=== PATIENT | male | born 1980 | race Caucasian/White ===

== ENCOUNTER 2021-07-22 21:34 | Inpatient (IN) | payer MEDICAID, SELFPAY ==
--- NOTE | ~2021-07-22 | CT_ITS ---
EXAMINATION: CT ABDOMEN AND PELVIS WITH CONTRAST CLINICAL INFORMATION: Abdominal pain. Elevated lipase. Constipated. Question malignancy. COMPARISON: None TECHNIQUE: Multidetector volumetric images were obtained from the superior aspect of the liver through the pubic symphysis following administration 85 mL of Omnipaque 350 intravenous contrast. Sagittal and coronal reformatted images were obtained on the technologist's workstation. Oral contrast: No This CT examination was performed using dose optimization techniques as appropriate, variously including the following: *Automated exposure control *Adjustment of mA and/or kV according to patient size (this includes techniques or standardized protocols for targeted exams where dose is matched to indication/reason for exam; i.e. extremities or head) *Use of iterative reconstruction technique DLP: 376 mGy-cm FINDINGS: LUNG BASES: The visualized lung bases are unremarkable. LIVER, GALLBLADDER, AND BILIARY TREE: The liver is normal in size, shape, and attenuation. No focal hepatic lesion or biliary ductal dilatation is present. The gallbladder is unremarkable with no evidence of radiopaque gallstones, gallbladder wall thickening, or obvious pericholecystic inflammatory changes. PANCREAS: Unremarkable. SPLEEN: Unremarkable. ADRENAL GLANDS: Unremarkable. KIDNEYS AND URETERS: The kidneys are normal in size, shape, and attenuation. No hydronephrosis, hydroureter, or calculi seen. No perinephric stranding. BLADDER: Unremarkable. GASTROINTESTINAL TRACT: The stomach is unremarkable. Normal caliber small bowel. There is no obstruction. No colonic wall thickening or adjacent inflammation. There is diverticulosis present without diverticulitis. The appendix is not definitively seen. ABDOMINAL WALL: No significant hernia is appreciated. LYMPH NODES: Normal. VASCULAR: Unremarkable. PELVIC VISCERA: The prostate and seminal vesicles are unremarkable. OSSEOUS STRUCTURES: No acute or suspicious osseous abnormality. Evidence of previous hardware in the right femur. Spinal fusion hardware extending from the thoracic spine to the level of L1. Degenerative changes noted in the lumbar spine. CT/CT abdomen pelvis w con IMPRESSION: No acute or suspicious findings of the abdomen or pelvis. No mass identified. No lymphadenopathy. No inflammatory changes. Fleischner guidelines were followed.
--- NOTE | ~2021-07-22 | XR_ITS ---
EXAMINATION: XR CHEST CLINICAL INFORMATION: Shortness of breath COMPARISON: None TECHNIQUE: Frontal view of the chest was obtained. FINDINGS: Spinal fusion hardware noted. The lungs are well expanded. No consolidation, edema, or effusion. No pneumothorax. The cardiomediastinal silhouette is within normal limits. XR/XR chest 1V IMPRESSION: No acute pulmonary finding.
[2021-07-22 22:09] VITALS: BP 146/86; PULSE 103; RESP 20; TEMP 37; O2SAT 98; BMI 22.4
[2021-07-22 23:31] LABS: MANUAL DIFF FLAG NO
[2021-07-22 23:36] LABS: Basophils Percent Auto 0.4 % (0-2); Eosinophils Absolute Auto 0.2 X10*3/uL (0.0-0.4); Eosinophils Percent Auto 2.8 % (0-4); Hematocrit 42.8 % (42.0-52.0); Imm Gran Abs Auto 0.02 X10*3/uL (0.00-0.03); Imm Gran Pct Auto 0.3 % (0.0-0.4); Lymphocytes Absolute Auto 0.5 X10*3/uL (1.2-4.9); Lymphocytes Percent Auto 7.2 % (20-40); Mean Corpuscular HGB Conc 32.7 g/dl (31.0-36.0); Mean Corpuscular Hemoglobin 29.9 pg (27.0-33.0); Mean Corpuscular Volume 91.3 fL (80.0-98.0); Mean Platelet Volume 9.5 fL (9.4-12.4); Monocytes Absolute Auto 0.7 X10*3/uL (0.1-1.2); Monocytes Percent Auto 9.3 % (2-11); Neutrophils Absolute Auto 5.9 x10*3/uL (2.0-8.3); Platelet Count 194 X10*3/uL (160-400); Red Blood Count 4.69 X10*6/uL (4.60-5.80); Red Cell Distribution Width 12.4 % (11.0-16.0); White Blood Count 7.4 X10*3/uL (4.8-10.8)
[2021-07-22 23:50] LABS: Alanine Aminotransferase 30 U/L (0-40); Albumin Level 4.8 g/dL (3.5-5.0); Alkaline Phosphatase 56 U/L (39-117); Anion Gap 17 (12-20); Aspartate Amino Transferase 27 U/L (5-37); Bilirubin Direct 0.3 mg/dL (0.0-0.5); Bilirubin Total 0.6 mg/dL (0.0-1.0); Blood Urea Nitrogen 14 mg/dL (9-16); Calcium 10.3 mg/dL (8.4-10.2); Carbon Dioxide 28 mmol/L (22-29); Chloride 103 mmol/L (96-108); Creatinine Clr Calc Pharmacy 73.1; Estimated Glomerular Filt Rate > 60; Glucose Random 113 mg/dL (60-115); Lipase 853 U/L (8-78); Potassium 4.5 mmol/L (3.3-5.1); Sodium 143 mmol/L (135-145)
[2021-07-22 23:54] LABS: COVID-19 Test Negative (Negative)
[2021-07-23] VITALS: BP 127/68; PULSE 94; RESP 16; TEMP 37.1; O2SAT 95
[2021-07-23] MEDS: HYDROmorphone HCl 0.5 MG/0.5 ML SYRINGE 0.25 MG IVPUSH (00:32)
[2021-07-23] MEDS: 0.9 % Sodium Chloride 2,000 ML 999 ML IV (00:33)
--- NOTE | 2021-07-23 00:36 | ED_ITS ---
HPI - Abdominal Pain General Chief Complaint: Abdominal Pain Stated Complaint: ulcer? stomach pain Time Seen by Provider: 07/23/21 00:01 Source: patient Mode of arrival: ambulatory History of Present Illness HPI narrative: 40-year-old male who presents with complaints of chronic sharp abdominal pain radiates along the diaphragmatic distribution as well as into his back that has worsened tonight, denies nausea/vomiting, but states that he felt constipated so he drank a bottle of magnesium citrate 2 hours ago. He denies any history or recent use of alcohol and denies any drugs. Otherwise he denies any shortness of breath but states the pain radiates up into his chest bilaterally. Patient denies any COVID-19 vaccination Related Data Home Medications Medication Instructions Recorded Confirmed No Known Home Meds 07/23/21 07/23/21 Allergies Allergy/AdvReac Type Severity Reaction Status Date / Time Penicillins Allergy Intermediate Hives Verified 07/22/21 22:09 Sulfa (Sulfonamide Allergy Hives Verified 07/22/21 22:09 Antibiotics) Review of Systems Review of Systems Pertinent positives and negatives as stated in HPI 10 point review of systems is otherwise negative. Physical Exam Verdana 4l Vital Signs: Verdana 4d Verdana 4d Vital Signs: Verdana 4d Verdana 4Bd Last Vital Signs Verdana 4d Cultural Historian New 4d Cultural Historian New 4d Temp 98.5 F 07/23/21 03:27 Cultural Historian New 4d Pulse 82 07/23/21 03:27 Cultural Historian New 4d Resp 16 07/23/21 03:27 BP 113/69 07/23/21 03:27 Pulse Ox 100 07/23/21 03:27 BMI result Body Mass Index 22.4 VITAL SIGNS: Reviewed. GENERAL: Well developed, well nourished, in mild distress. HEAD: Normocephalic/atraumatic EYES: PERRLA, EOMI \ EARS: Ext canals without abnormality OROPHARYNX: no oral lesions noted, posterior pharynx clear LUNGS: Normal breath sounds. No adventitious sounds or accessory muscle use. SpO2<98> CARDIOVASCULAR: Regular rate and rhythm without noted murmurs, no JVD or lower extremity edema. ABDOMEN: Soft, diffusely tender without rebound, tenderness maximal at epigastrium, non-distended with bowel sounds. MUSCULOSKELETAL: No tenderness, deformities, or effusions noted on gross inspection. EXTREMITIES: No cyanosis, clubbing or edema. SKIN: Inspection of the skin reveals no rashes NEUROLOGIC: Alert and oriented x 4. Strength and sensation to light touch were grossly intact x 4. Course Course Course Narrative: 40-year-old male with history and clinical presentation most suggestive of pa ncreatitis although he reports a history of gastric ulcer and has no surgical history. On review of all investigations is noted have an elevated lipase and then the absence nausea, vomiting, fever, chills or alcohol use concerning for possible malignancy. Patient received IV fluids as well as pain medication. Review of all investigations consistent with acute pancreatitis, but etiology not clear at this point. This case was discussed with the inpatient hospitalist who accepts admission. MDM - Abdominal Pain Lab Data Result diagrams: 07/22/21 23:28 07/22/21 23:28 Labs: Lab Results 07/22/21 07/22/21 07/22/21 Range/Units 23:28 23:28 23:28 WBC 7.4 (4.8-10.8) X10*3/uL RBC 4.69 (4.60-5.80) X10*6/uL Hgb 14.0 (14.0-18.0) g/dl Hct 42.8 (42.0-52.0) % MCV 91.3 (80.0-98.0) fL MCH 29.9 (27.0-33.0) pg MCHC 32.7 (31.0-36.0) g/dl RDW 12.4 (11.0-16.0) % Plt Count 194 (160-400) X10*3/uL MPV 9.5 (9.4-12.4) fL Immature Gran % (Auto) 0.3 (0.0-0.4) % Neut % (Auto) 80.0 H (45-73) % Lymph % (Auto) 7.2 L (20-40) % [place] % (Auto) 9.3 (2-11) % Eos % (Auto) 2.8 (0-4) % Baso % (Auto) 0.4 (0-2) % Lymph # (Auto) 0.5 L (1.2-4.9) X10*3/uL [place] # (Auto) 0.7 (0.1-1.2) X10*3/uL Eos # (Auto) 0.2 (0.0-0.4) X10*3/uL Baso # (Auto) 0.0 (0.0-0.2) X10*3/uL Abs Immat Gran (auto) 0.02 (0.00-0.03) X10*3/uL Absolute Neuts (auto) 5.9 (2.0-8.3) x10*3/uL Absolute Nucleated RBC 0.000 (0.0-0.012) X10*3/uL Nucleated RBC % (auto) 0.0 (0.0-0.2) /100WBC Sodium 143 (135-145) mmol/L Potassium 4.5 (3.3-5.1) mmol/L Chloride 103 (96-108) mmol/L Carbon Dioxide 28 (22-29) mmol/L Anion Gap 17 (12-20) BUN 14 (9-16) mg/dL Creatinine 1.14 (0.5-1.4) mg/dL Estim Creat Clear Calc 73.1 Estimated GFR > 60 Random Glucose 113 (60-115) mg/dL Calcium 10.3 H (8.4-10.2) mg/dL Total Bilirubin 0.6 (0.0-1.0) mg/dL Direct Bilirubin 0.3 (0.0-0.5) mg/dL AST 27 (5-37) U/L ALT 30 (0-40) U/L Alkaline Phosphatase 56 (39-117) U/L Total Protein 8.0 (6.5-8.0) g/dL Albumin 4.8 (3.5-5.0) g/dL Triglycerides 49 mg/dL Cholesterol 148 mg/dL LDL Cholesterol, Calc 86 mg/dl HDL Cholesterol 53 mg/dL Lipase 853 H (8-78) U/L COVID-19 (INDU) Negative (Negative) COVID-19 Clin Com See Note Discharge Plan Discharge Clinical Impression: Acute pancreatitis, Intractable abdominal pain Patient Disposition: Admitted As [facility]patient [facility] Past Medical History Source: nursing notes reviewed Social History Social History Patient Tobacco Use Status: Current everyday Tobacco user Use of substances other than those prescribed or required for medical reasons: Yes Substance Use Type: Marijuana Advance Directives: No
--- NOTE | 2021-07-23 00:42 | PC.NURSE ---
pt a&o, no sob or chest pain. pt medicated per abd pain. Medicated per Mar.
[2021-07-23] MEDS: iohexoL 350 MG/ML 100 ML INFUS..BTL 85 ML IV (01:21)
[2021-07-23 01:34] LABS: Cholesterol 148 mg/dL; HDL Cholesterol 53 mg/dL; LDL Cholesterol Calculated 86 mg/dl; Triglycerides 49 mg/dL
--- NOTE | 2021-07-23 03:19 | PC.NURSE ---
pt a&o, denies any sob or chest pain. pt medicated per Mar. Will continue to monitor. Pt is upset that he can not have a visitor come see him, I did review hospital policy with patient. Notified charge nurse.
[2021-07-23 03:25] VITALS: BP 113/69; PULSE 82; RESP 20
[2021-07-23 03:27] VITALS: BP 113/69; PULSE 82; RESP 16; TEMP 36.9; O2SAT 100
--- NOTE | 2021-07-23 03:30 | PC.NURSE ---
verbal order for zofran. Will medicated for nausea and vomiting.
--- NOTE | 2021-07-23 03:38 | P.HPHOSP_ITS ---
History of Present Illness Date of Service: 07/23/21 Chief Complaint: abd pain This is a 40-year-old male with no significant past medical history who presents to the hospital with complaints of abdominal pain. Patient reports that his abdominal pain is mostly in the epigastric region but her radiating to the rest of his abdomen, to his back, associated with nausea with no vomiting, poor oral intake. He reports that he has had this abdominal pain for many months but it was intermittent but has now been constant for the past 5 days. He is constipated, he reports history of ulcer in is worried that this may be secondary to his altered as he has not been compliant with his antiacid medications. Patient denies any melena, no hemoptysis but reports a couple of months ago he had an episode ofcoffee-ground emesis. He is complaining of shortness of breath with no cough or sputum production. Denies any fever or chills, reports no alcohol intake. On arrival to the ED patient hemodynamically stable with no significant abnormal vitals except slightly elevated blood pressure and heart rate of 103. Labs are significant for lipase of [address] with contrast showed no significant abnormality and no evidence of pancreatitis Patient will be admitted for further management Review of Systems Verdana 4l Review of Systems: Yes all other systems are reviewed and Verdana 4d are negative PMFSH Pertinent family history: Denies any hx of CAD Surgical History (Updated 07/23/21 @ 06:25 by Veda Slater MD) No pertinent past surgical history Social History Patient Tobacco Use Status: Current everyday Tobacco user Use of substances other than those prescribed or required for medical reasons: Yes Substance Use Type: Marijuana Advance Directives: No Meds Allergies Allergy/AdvReac Type Severity Reaction Status Date / Time Penicillins Allergy Intermediate Hives Verified 07/22/21 22:09 Sulfa (Sulfonamide Allergy Hives Verified 07/22/21 22:09 Antibiotics) Home Medications Medication Instructions Recorded Confirmed Last Taken Type No Known Home Meds 07/23/21 07/23/21 Unknown History Physical Exam Verdana 4l Vital Signs and Narrative: Verdana 4d Verdana 4d Vital Signs: Verdana 4d Verdana 4Bd Last Vital Signs Verdana 4d Learning Solutions Specialist New 4d Learning Solutions Specialist New 4d Temp 98.5 F 07/23/21 03:27 Learning Solutions Specialist New 4d Pulse 82 07/23/21 03:27 Learning Solutions Specialist New 4d Resp 16 07/23/21 03:27 BP 113/69 07/23/21 03:27 Pulse Ox 100 07/23/21 03:27 BMI result Body Mass Index 22.4 Results Labs CBC and Chem 7: 07/22/21 23:28 07/22/21 23:28 Labs: Laboratory Results - last 24 hr 07/22/21 07/22/21 07/22/21 23:28 23:28 23:28 MCV 91.3 MCH 29.9 MCHC 32.7 RDW 12.4 Plt Count 194 MPV 9.5 Immature Gran % (Auto) 0.3 Neut % (Auto) 80.0 H Lymph % (Auto) 7.2 L [place] % (Auto) 9.3 Eos % (Auto) 2.8 Baso % (Auto) 0.4 Lymph # (Auto) 0.5 L [place] # (Auto) 0.7 Eos # (Auto) 0.2 Baso # (Auto) 0.0 Abs Immat Gran (auto) 0.02 Absolute Neuts (auto) 5.9 Absolute Nucleated RBC 0.000 Nucleated RBC % (auto) 0.0 Anion Gap 17 Estim Creat Clear Calc 73.1 Estimated GFR > 60 Random Glucose 113 Calcium 10.3 H Total Bilirubin 0.6 Direct Bilirubin 0.3 AST 27 ALT 30 Alkaline Phosphatase 56 Total Protein 8.0 Albumin 4.8 Triglycerides 49 Cholesterol 148 LDL Cholesterol, Calc 86 HDL Cholesterol 53 Lipase 853 H COVID-19 (INDU) Negative COVID-19 Clin Com See Note Imaging Radiologist's Impressions: Impressions Abdomen/Pelvis CT 07/23/21 01:20 IMPRESSION: No acute or suspicious findings of the abdomen or pelvis. No mass identified. No lymphadenopathy. No inflammatory changes. Fleischner guidelines were followed. Assessment and Plan (1) Acute pancreatitis: Status: Acute (2) Intractable abdominal pain: Status: Acute (3) Dyspnea: Status: Acute Plan 40-year-old male with no significant past medical history who presents to the hospital complaints of abdominal pain # abdominal pain - most likely secondary to acute pancreatitis - has no evidence of gallstone pancreatitis, triglycerides within normal limits, not on any medications. Denies alcohol use - CT abdomen negative but has significantly elevated lipase and characteristic abdominal pain - will start him on aggressive IV fluids - NPO - GI consulted # history of gastric ulcer - no melena, but reports an episode of coffee-ground emesis be months ago, no significant blood loss anemia present on labs - will start him on PPI - consult GI # dyspnea - possibly secondary to pain - no abnormal vitals 100% on room air - will obtain chest x-ray DVT prophylaxis: Lovenox Quality Stroke Does the patient have a stroke diagnosis?: No VTE Prior VTE?: No VTE Risk Level:: Medical - moderate - high VTE Device Contraindication: Treatment Not Indicated VTE Drug Contraindication: N/A - Med Ordered
[2021-07-23] MEDS: ondansetron HCL 4 MG/2 ML VIAL IVPUSH (03:52)
[2021-07-23] MEDS: Lactated Ringers 1,000 ML 200 ML IVCONT (03:57)
[2021-07-23] MEDS: Enoxaparin Sodium 40 MG/0.4 ML SYRINGE SUBCUT (03:58)
[2021-07-23 06:00] VITALS: BP 104/62; PULSE 78; RESP 16; TEMP 36.7; O2SAT 98
[2021-07-23 06:21] LABS: MANUAL DIFF FLAG NO
--- NOTE | 2021-07-23 06:33 | PC.NURSE ---
Chest x-ray ordered
[2021-07-23 06:41] LABS: Basophils Percent Auto 0.3 % (0-2); Eosinophils Absolute Auto 0.1 X10*3/uL (0.0-0.4); Eosinophils Percent Auto 0.8 % (0-4); Hematocrit 37.2 % (42.0-52.0); Hemoglobin 12.6 g/dl (14.0-18.0); Imm Gran Abs Auto 0.02 X10*3/uL (0.00-0.03); Imm Gran Pct Auto 0.3 % (0.0-0.4); Lymphocytes Absolute Auto 0.6 X10*3/uL (1.2-4.9); Lymphocytes Percent Auto 9.1 % (20-40); Mean Corpuscular HGB Conc 33.9 g/dl (31.0-36.0); Mean Corpuscular Hemoglobin 29.9 pg (27.0-33.0); Mean Corpuscular Volume 88.4 fL (80.0-98.0); Mean Platelet Volume 10.1 fL (9.4-12.4); Monocytes Absolute Auto 0.7 X10*3/uL (0.1-1.2); Monocytes Percent Auto 9.2 % (2-11); Neutrophils Absolute Auto 5.7 x10*3/uL (2.0-8.3); Neutrophils Percent Auto 80.3 % (45-73); Platelet Count 187 X10*3/uL (160-400); Red Blood Count 4.21 X10*6/uL (4.60-5.80); Red Cell Distribution Width 12.4 % (11.0-16.0); White Blood Count 7.1 X10*3/uL (4.8-10.8)
[2021-07-23 06:53] LABS: Appearance Urine CLEAR; Color Urine YELLOW; Glucose Urine UA NEG (NEG); Leukocyte Esterase Urine NEG (NEG); Nitrite Urine NEG (NEG); PH 7.5 (5.0-8.0); Specific Gravity - Urine <= 1.005 (1.005-1.025); Urine Blood NEG (NEG); Urine Ketones NEG (NEG); Urine Protein NEG (NEG-TRACE)
[2021-07-23 06:58] LABS: Anion Gap 10 (12-20); Blood Urea Nitrogen 9 mg/dL (9-16); Carbon Dioxide 26 mmol/L (22-29); Chloride 107 mmol/L (96-108); Creatinine Clr Calc Pharmacy 96.9; Estimated Glomerular Filt Rate > 60; Glucose Random 125 mg/dL (60-115); Potassium 4.2 mmol/L (3.3-5.1); Sodium 139 mmol/L (135-145)
[2021-07-23 07:11] LABS: Amphetamine Screen Urine Not Detected (Not Detect); Barbiturates, Urine Not Detected (Not Detect); Benzodiazepines Screen Urine Not Detected (Not Detect); Cannabinoid Screen Urine POSITIVE (Not Detect); Cocaine Screen Urine Not Detected (Not Detect); Fentanyl, urine Not Detected (Not Detect); Opiate Screen Urine Not Detected (Not Detect); Phencyclidine Screen Urine Not Detected (Not Detect)
[2021-07-23 07:13] VITALS: BP 125/80; PULSE 84; RESP 16; TEMP 36.9; O2SAT 98
[2021-07-23] MEDS: Morphine Sulfate 4 MG/ML CARTRIDGE IVPUSH (07:33)
[2021-07-23] MEDS: Pantoprazole Sodium 40 MG/10 ML VIAL IVPUSH (07:34)
--- NOTE | 2021-07-23 07:44 | PC.NURSE ---
report taken from orlin mccrary pt here w pancreatitis. asking for pain medication, pt has prn ordered. this rn in w medications, given per order. pt very agitated, upset at visitor policy, sts this bullshit plandemic is causing a million problems for the last two years . pt yelling with on telephone. this rn stepping out of room as pt continues to air general grievances w obscenities.
--- NOTE | 2021-07-23 08:11 | PHA.MEDREC ---
Pharmacy Consult ? Medication Reconciliation Pharmacy has reviewed the medication reconciliation completed by
--- NOTE | 2021-07-23 09:57 | PC.NURSE ---
pt yelling on phone in room, using obscenities. report to overflow given. pt educated about getting private room, hospitalist aware of pt behaviors, has already came down and consulted with pt this am. pt is refusing to go down to overflow, perseverates on topic of covid, the pandemic, and the healthcare system 'cooking the numbers' . pt asked by multiple staff members to please stop yelling and swearing. this rn messaged hospitalist again about pt.
--- NOTE | 2021-07-23 10:48 | PC.NURSE ---
pt given ama paper work, pt continues to voice agitation with doctors, nobody here can even diagnose me! . pt in no obvious distress, yelling at this rn.
--- NOTE | 2021-07-23 11:02 | PM.EVENT ---
Event Note Date of Service: 07/23/21 Event Note: Discharge summary Discharge diagnosis Abdominal pain Elevated lipase Patient decided to leave against medical advice as he wants to go back home and take care of his father. He did not want to wait to for the social work therapist or to continue the workup and treatment for his abdominal pain. I explained personally the risk of leaving the hospital including getting sicker and possible bleeding. He understood and repeated the risks and signed AMA papers and left.
--- NOTE | 2021-07-23 11:55 | MHC.CM.PN ---
Patient left AMA before he could be seen by case management.
== END 2021-07-23 10:00 | disposition left against medical advice (07) | DRG 282 ==
LOC: HO.ED 07-23 03:01 → HO.EDOVER 07-23 03:41
PROVIDERS: Admitting Provider Internal Medicine; Emergency Provider Student in an Organized Health Care Education/Training Program; Visit Provider Student in an Organized Health Care Education/Training Program
DX: K85.90 Acute pancreatitis without necrosis or infection, unspecified (principal); F17.210 Nicotine dependence, cigarettes, uncomplicated; Z20.822 Contact with and (suspected) exposure to COVID-19; Z88.0 Allergy status to penicillin; Z88.2 Allergy status to sulfonamides; Z71.6 Tobacco abuse counseling
CPT/HCPCS: 36415; 71045; 74177; 80048; 80061; 80076; 80307; 81003; 83690; 85025; 87635; 99218; 99284; J1170; J1650; J2270; J2405; Q9967

== ENCOUNTER 2022-04-15 20:01 | Emergency (ER) | payer MEDICAID, SELFPAY ==
[2022-04-15 21:55] VITALS: BP 111/76; PULSE 72; RESP 18; TEMP 36.7; O2SAT 98; BMI 24.1
--- NOTE | 2022-04-16 01:35 | ED.DIZZY ---
HPI - Dizziness General Chief Complaint: Dizziness Stated Complaint: dizziness,headache Time Seen by Provider: 04/16/22 01:35 Source: patient Mode of arrival: ambulatory Limitations: no limitations History of Present Illness HPI Narrative: Patient with history of chronic abdominal pain with pancreatitis history and chronic dizziness comes here for more dizziness lately and increased abdominal pain no nausea no vomiting no fever no chills no urinary complaints Related Data Previous Rx's Medication Instructions Recorded digestive enzymes (XymoZyme 1 cap PO DAILY #30 caps 04/16/22 capsule) oxycodone 5 mg tablet 5 mg PO Q6H PRN Moderate Pain 04/16/22 (Scale Score 5-6) #20 tabs Allergies Allergy/AdvReac Type Severity Reaction Status Date / Time Penicillins Allergy Intermediate Hives Verified 07/22/21 22:09 codeine Allergy Hives Verified 04/15/22 21:54 Sulfa (Sulfonamide Allergy Hives Verified 07/22/21 22:09 Antibiotics) Review of Systems Review of Systems: Yes all other systems are reviewed and are negative [facility] Past Medical History Surgical History No pertinent past surgical history Social History Social History Patient Tobacco Use Status: Current everyday Tobacco user Substance Use Type: Marijuana Advance Directives: No Physical Exam Vital Signs: Vital Signs: Last Vital Signs Temp 98.2 F 04/16/22 01:53 Pulse 63 04/16/22 03:52 Resp 16 04/16/22 02:08 BP 109/77 04/16/22 03:52 Pulse Ox 98 04/16/22 03:52 O2 Del Method 04/16/22 03:52 BMI result Body Mass Index 24.1 Appearance: Alert. Oriented X3. No acute distress. Eyes: PERRLA, No Nystagmus ENT: Pharynx normal. Oral Mucosa moist Neck: Normal inspection. Neck supple. CVS: Normal heart rate and rhythm. Pulses normal. Respiratory: No respiratory distress. Equal air entry bilateral, no wheezing/rales/rhonchi Abdomen: Soft and mild mid abdominal tenderness no rebound tenderness or guarding Bowel sounds are present, no mass palpable, no CVA tenderness Skin: Skin warm and dry. Normal skin color. Normal skin turgor. Extremities: No lower extremity edema. No calf tenderness Neuro: Oriented X 3. No motor deficit. No sensory deficit.No cerebellar signs , cranial nerves II-XII intact MDM - Dizziness MDM Narrative Medical decision making narrative: Patient with chronic pancreatitis with previous CT scan negative for inflammation this time lipase slightly elevated to 93 no nausea no vomiting chronic dizziness patient improved after IV fluids and pain medication discharge patient home on pain medication and pancreatic enzyme tablets Medical Records Attestation: I reviewed the patient's medical records. Lab Data Attestation: I reviewed the patient's lab results. Result diagrams: 04/16/22 02:04 04/16/22 02:04 Labs: Lab Results 04/16/22 04/16/22 Range/Units 02:04 02:04 WBC 11.6 H (4.8-10.8) X10*3/uL RBC 4.65 (4.60-5.80) X10*6/uL Hgb 13.8 L (14.0-18.0) g/dl Hct 42.1 (42.0-52.0) % MCV 90.5 (80.0-98.0) fL MCH 29.7 (27.0-33.0) pg MCHC 32.8 (31.0-36.0) g/dl RDW 12.2 (11.0-16.0) % Plt Count 247 D (160-400) X10*3/uL MPV 9.5 (9.4-12.4) fL Immature Gran % (Auto) 0.2 (0.0-0.4) % Neut % (Auto) 67.1 (45-73) % Lymph % (Auto) 24.1 (20-40) % [place] % (Auto) 5.9 (2-11) % Eos % (Auto) 2.4 (0-4) % Baso % (Auto) 0.3 (0-2) % Lymph # (Auto) 2.8 (1.2-4.9) X10*3/uL [place] # (Auto) 0.7 (0.1-1.2) X10*3/uL Eos # (Auto) 0.3 (0.0-0.4) X10*3/uL Baso # (Auto) 0.0 (0.0-0.2) X10*3/uL Abs Immat Gran (auto) 0.02 (0.00-0.03) X10*3/uL Absolute Neuts (auto) 7.8 (2.0-8.3) x10*3/uL Absolute Nucleated RBC 0.000 (0.0-0.012) X10*3/uL Nucleated RBC % (auto) 0.0 (0.0-0.2) /100WBC Sodium 141 (135-145) mmol/L Potassium 4.6 (3.3-5.1) mmol/L Chloride 103 (96-108) mmol/L Carbon Dioxide 28 (22-29) mmol/L Anion Gap 15 (12-20) BUN 28 H D (9-16) mg/dL Creatinine 1.25 (0.5-1.4) mg/dL Estim Creat Clear Calc 66.2 Estimated GFR > 60 Random Glucose 110 (60-115) mg/dL Calcium 9.5 (8.4-10.2) mg/dL Total Bilirubin 0.6 (0.0-1.0) mg/dL AST 18 (5-37) U/L ALT 34 (0-40) U/L Alkaline Phosphatase 57 (39-117) U/L Total Protein 7.7 (6.5-8.0) g/dL Albumin 4.6 (3.5-5.0) g/dL Lipase 93 H (8-78) U/L Discharge Plan Discharge Clinical Impression: Chronic pancreatitis Patient Disposition: Home, Self-Care Instructions: Pancreatitis (ED) Additional Instructions: Take pain medication as advised Pancreatic enzyme tablets as prescribed Follow-up with PCP Prescriptions: New oxycodone 5 mg tablet 5 mg PO Q6H PRN (Reason: Moderate Pain (Scale Score 5-6)) Qty: 20 0RF Rx Instructions: Partial Fill upon patient request. XymoZyme Capsule 1 cap PO DAILY Qty: 30 0RF Rx Instructions: administer with food; swallow whole; do not crush/chew/dissolve/break/cut Interventions: ED Discharge Assessment Last Done: 04/16/22 04:27 Discharge Date/Time: 04/16/22 04:29
--- OUTSIDE RECORDS SUMMARY | 2022-04-16 01:38 | XMS_ITS | Continuity of Care Document ---
:1980 Author Organization [facility] Adult Address [address] [place] [address]- Care Team Providers Name Role Phone Anny Flores NP Primary Care Physician Encounter [facility] Date(s): 11/07/21 - 12/07/21 [facility] [address] [place] [phone]- Allergies, Adverse Reactions, Alerts Substance Reaction Severity Status neomycin Active penicillins Urticaria Active sulfonamides Active Immunizations Given and Recorded Vaccine Date Status Refusal Reason Diphth-Tetanus Toxoids Adsorbed(oldterm) 02/02/06 Given Problem List Condition Effective Dates Status Health Status Informant Depression(Confirmed) Active Low back pain(Confirmed) Active Mood disorder(Confirmed) Active Panic anxiety syndrome(Confirmed) Active 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
--- OUTSIDE RECORDS SUMMARY | 2022-04-16 01:38 | XMS_ITS | Continuity of Care Document ---
:1980 Author Organization [facility] Adult Address [address] [place] [address]- Care Team Providers Name Role Phone Anny Flores NP Primary Care Physician Encounter [facility] Date(s): 10/16/20 - 11/15/20 [facility] [address] [place] [phone]- Allergies, Adverse Reactions, Alerts Substance Reaction Severity [...]
--- OUTSIDE RECORDS SUMMARY | 2022-04-16 01:38 | XMS_ITS | Continuity of Care Document ---
:1980 Author Organization [facility] Adult Address [address] [place] [address]- Care Team Providers Name Role Phone Anny Flores NP Primary Care Physician Encounter [facility] Date(s): 11/20/20 - 12/20/20 [facility] [address] [place] [phone]- Allergies, Adverse Reactions, Alerts Substance Reaction Severity Status neomycin Active penicillins Urticaria Active sulfonamides Active Immunizations Given and Recorded Vaccine Date Status Refusal Reason Diphth-Tetanus Toxoids Adsorbed(oldterm) 02/02/06 Given Medications clonazePAM 0.5 mg oral tablet 1 tablet = 0.5 mg, By Mouth, Once, Take 1 tablet one hour before MRI. May repeat dose if necessary.,# 2 tablet, 0 Refills, Soft Stop, 11/20/20 14:34:00 EDT, [facility]/pharmacy #[id number], Partial fill upon patient request if the prescription is for a schedule... 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
--- OUTSIDE RECORDS SUMMARY | 2022-04-16 01:38 | XMS_ITS | Continuity of Care Document ---
:1980 Author Organization [facility] Address [address] [place] [address]- Care Team Providers Name Role Phone Anny Flores NP Primary Care Physician Encounter [facility] Date(s): 11/20/20 - 12/23/[address] [address] Attending Physician: Anny Flores NP Admitting Physician: Anny Flores NP Referring Physician: Anny Flores NP Allergies, Adverse Reactions, Alerts Substance Reaction Severity [...] 0 Refills, Soft Stop, 11/20/20 14:34:00 EDT, [facility]/pharmacy #[id number], Partial fill upon patient request if the [...]
--- OUTSIDE RECORDS SUMMARY | 2022-04-16 01:38 | XMS_ITS | Continuity of Care Document ---
:1980 Author Organization [facility] Address [address] [place] [id number]- Care Team Providers Name Role Phone Anny Flores NP Primary Care Physician Encounter [facility] [place] Date(s): 01/27/22 - 03/27/[address] [id number] Attending Physician: Kiki Wyatt MD Admitting Physician: Kiki Wyatt MD Referring Physician: Kiki Wyatt MD Allergies, Adverse Reactions, Alerts Substance Reaction Severity Status neomycin Active penicillins Urticaria Active sulfonamides Active Immunizations Given and Recorded Vaccine Date Status Refusal Reason Diphth-Tetanus Toxoids Adsorbed(oldterm) 02/02/06 Given Problem List Condition Confirmation Course Effective Dates Status Health Stat us Informant Depression Confirmed Active Low back pain Confirmed Active Mood disorder Confirmed Active Panic anxiety Confirmed Active syndrome 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
--- OUTSIDE RECORDS SUMMARY | 2022-04-16 01:38 | XMS_ITS | Continuity of Care Document ---
:1980 Author Organization [facility] Adult Address [address] [place] [address]- Care Team Providers Name Role Phone Anny Flores NP Primary Care Physician [place]counter [facility] [place] Date(s): 11/07/21 - 11/14/[address] [phone]- Encounter Diagnosis Well adult exam (Discharge Diagnosis) - 11/07/21 Hyperkalemia (Discharge Diagnosis) - 11/07/21 Mood disorder (Discharge Diagnosis) - 11/07/21 Attending Physician: Kiki Wyatt MD Allergies, Adverse Reactions, Alerts Substance Reaction Severity Status neomycin Active penicillins Urticaria Active sulfonamides Active Immunizations Given and Recorded Vaccine Date Status Refusal Reason Diphth-Tetanus Toxoids Adsorbed(oldterm) 02/02/06 Given Problem List Condition Effective Dates Status Health Status Informant Depression(Confirmed) Active Low back pain(Confirmed) Active Mood disorder(Confirmed) Active Panic anxiety syndrome(Confirmed) Active 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 Diagnosis Diagnosis Type Effective Dates Health Status Clinical In formant Service Well adult exam Discharge 11/07/21 Diagnosis Hyperkalemia Discharge 11/07/21 Diagnosis Mood disorder Discharge 11/07/21 Diagnosis Vital Signs Most recent to oldest [Reference Range]: 1 Height 164.5 cm (11/07/21 1:46 PM) Weight 72 kg (11/07/21 1:46 PM) Oxygen Saturation [94-100 %] 96 % (11/07/21 1:46 PM) Pulse Rate [55-90 bpm] 78 bpm (11/07/21 1:46 PM) Body Mass Index [18.5-24.99] 26.61 *H* (11/07/21 1:46 PM) Blood Pressure [90-138/55-84 mm Hg] 122/76 mm Hg (11/07/21 1:46 PM) Respiratory Rate [16-30 br/min] 18 br/min (11/07/21 1:46 PM) Mode of Delivery (Oxygen) Room air (11/07/21 1:46 PM) Blood pressure sites Arm, left (11/07/21 1:46 PM) Weight Obtained Via Standing scale (11/07/21 1:46 PM) Social History Social History Type Response Smoking Status Current every day smoker; Ty pe: Cigarettes; Tobacco use times per day: 1 PPD; Started at age: 13; entered on: 11/29/14 Sex
--- OUTSIDE RECORDS SUMMARY | 2022-04-16 01:38 | XMS_ITS | Continuity of Care Document ---
:1980 Author Organization [facility] Address [address] [place] [phone]- Care Team Providers Name Role Phone Anny Flores NP Primary Care Physician [place] [facility] [place](s): 01/27/22 - 03/27/[address] [id number] Attending Physician: Zo Rocha NP Admitting Physician: Zo Rocha NP Referring Physician: Zo Rocha NP Allergies, Adverse Reactions, Alerts Substance Reaction [...] information PersonnelName: Anny Flores NP Address: Address: [address] [place] [id number]
--- OUTSIDE RECORDS SUMMARY | 2022-04-16 01:38 | XMS_ITS | Continuity of Care Document ---
:1980 Author Organization [facility] Adult Address [address] [place] [address]- Care Team Providers Name Role Phone Anny Flores NP Primary Care Physician [place] [facility] [place] - 12/11/20 [facility] Adult [address] [place] [phone]- Allergies, Adverse Reactions, Alerts Substance Reaction Severity [...] 0 Refills, Soft Stop, 11/20/20 14:34:00 EDT, [facility]/pharmacy #[id number], Partial fill upon patient request if the [...]
--- OUTSIDE RECORDS SUMMARY | 2022-04-16 01:38 | XMS_ITS | Continuity of Care Document ---
:1980 Author Organization [facility] Adult Address [address] [place] [address]- Care Team Providers Name Role Phone Anny Flores NP Primary Care Physician Encounter [facility] [place] Date(s): 12/12/21 - 12/19/21 [facility] Adult [address] [place] [phone]- Encounter Diagnosis Axillary lump (Discharge Diagnosis) - 12/12/21 Attending Physician: Kiki Wyatt MD Allergies, Adverse [...] Dates Health Status Clinical In formant Service Axillary lump Discharge 12/12/21 Diagnosis Vital Signs Most recent to oldest [Reference Range]: 1 Height 164.5 cm (12/12/21 12:59 PM) Weight 68.4 kg (12/12/21 12:59 PM) Oxygen Saturation [94-100 %] 98 % (12/12/21 12:59 PM) Pulse Rate [55-90 bpm] 80 bpm (12/12/21 12:59 PM) Body Mass Index [18.5-24.99] 25.28 *H* (12/12/21 12:59 PM) Blood Pressure [90-138/55-84 mm Hg] 110/72 mm Hg (12/12/21 12:59 PM) Temperature [96.8-100.4 DegF] 98.4 DegF (12/12/21 12:59 PM) Mode of Delivery (Oxygen) Room air (12/12/21 12:59 PM) Blood pressure sites Arm, left (12/12/21 12:59 PM) Temperature Route Oral (12/12/21 12:59 PM) Weight Obtained Via Standing scale (12/12/21 12:59 PM) Social History Social History Type Response Smoking Status Current every day smoker; Ty pe: Cigarettes; Tobacco use times per day: 1 PPD; Started at age: 13; entered on: 11/29/14 Sex
--- OUTSIDE RECORDS SUMMARY | 2022-04-16 01:38 | XMS_ITS | Continuity of Care Document ---
:1980 Author Organization [facility] Adult Address [address] [place] [address]- Care Team Providers Name Role Phone Anny Flores NP Primary Care Physician Encounter [facility] [place] Date(s): 10/23/20 - 11/22/20 [facility] Adult [address] [place] [phone]- Allergies, Adverse Reactions, Alerts Substance Reaction Severity [...] 0 Refills, Soft Stop, 11/20/20 14:34:00 EDT, [facility]/pharmacy #[id number], Partial fill upon patient request if the [...]
--- OUTSIDE RECORDS SUMMARY | 2022-04-16 01:38 | XMS_ITS | Continuity of Care Document ---
:1980 Author Organization [facility] Adult Address [address] [place] [address]- Care Team Providers Name Role Phone Anny Flores NP Primary Care Physician [place] [facility] [place] Date(s): 08/12/21 - 09/11/21 [facility] Adult [address] [place] [phone]- Allergies, Adverse Reactions, Alerts Substance Reaction Severity [...] Refills, Soft Stop, 11/20/20 14:34:00 EDT, [facility]/pharmacy #[id number], Partial fill upon patient request if the [...]
--- OUTSIDE RECORDS SUMMARY | 2022-04-16 01:38 | XMS_ITS | Continuity of Care Document ---
:1980 Author Organization [facility] Adult Address [address] [place] [address]- Care Team Providers Name Role Phone Anny Flores NP Primary Care Physician Encounter [facility] [place] Date(s): 10/15/20 - 10/22/20 [facility] [address] [place] [phone] Encounter Diagnosis Annual visit for general adult medical examination with abnormal findings (Discharge Diagnosis) - 10/15/20 Scheuermann's kyphosis (Discharge Diagnosis) - 10/15/20 Panic anxiety syndrome (Discharge Diagnosis) - 10/15/20 Paresthesias (Discharge Diagnosis) - 10/15/20 Attending Physician: Anny Flores NP Allergies, Adverse Reactions, [...] Active Diagnosis Diagnosis Type Effective Dates Health Clinical Infor mant Status Service Panic anxiety Discharge 10/15/20 syndrome Diagnosis Scheuermann's Discharge 10/15/20 kyphosis Diagnosis Annual visit for Discharge 10/15/20 general adult Diagnosis medical examination with abnormal findings Paresthesias Discharge 10/15/20 Diagnosis Vital Signs Most recent to oldest [Reference Range]: 1 Height 164.5 cm (10/15/20 9:50 AM) Weight 61.6 kg (10/15/20 9:50 AM) Oxygen Saturation [94-100 %] 97 % (10/15/20 9:50 AM) Pulse Rate [55-90 bpm] 79 bpm (10/15/20 9:50 AM) Body Mass Index [18.5-24.99] 22.76 (10/15/20 9:50 AM) Blood Pressure [90-138/55-84 mm Hg] 110/86 mm Hg (10/15/20 9:50 AM) Temperature [96.8-100.4 DegF] 98 DegF (10/15/20 9:50 AM) Mode of Delivery (Oxygen) Room air (10/15/20 9:50 AM) Blood pressure sites Arm, left (10/15/20 9:50 AM) Temperature Route Oral (10/15/20 9:50 AM) Weight Obtained Via Standing scale (10/15/20 9:50 AM) Social History Social History Type Response Smoking Status Current every day smoker; Ty pe: Cigarettes; Tobacco use times per day: 1 PPD; Started at age: 13; entered on: 11/29/14 Sex
--- OUTSIDE RECORDS SUMMARY | 2022-04-16 01:38 | XMS_ITS | Continuity of Care Document ---
:1980 Author Organization [facility] Address [address] [place] [phone]- Care Team Providers Name Role Phone Anny Flores NP Primary Care Physician Encounter [facility] [place] Date(s): 12/24/21 - 02/26/[address] [address] Attending Physician: Zo Rocha NP Admitting Physician: [...] at age: 13; entered on: 11/29/14 Sex Care Team PersonnelName: Anny Flores NP Address: [address] [place] [id number]
--- OUTSIDE RECORDS SUMMARY | 2022-04-16 01:38 | XMS_ITS | Continuity of Care Document ---
:[address] [facility] Adult Address [address] [place] [address]- Care Team Providers Name Role Phone Not on Staff, PCP Primary Care Physician Unavailable En[place] [facility] [place] Date(s): 04/22/20 - 04/29/[address] [facility] Adult [address] [place] [phone] [facility] Encounter Diagnosis Mood disorder (Discharge Diagnosis) - 04/22/20 Depression (Discharge Diagnosis) - 04/22/20 Low back pain (Discharge Diagnosis) - 04/22/20 Attending Physician: Anny Flores NP Referring Physician: Kiki Wyatt MD Allergies, Adverse Reactions, Alerts Substance Reaction Severity Status neomycin Active penicillins Urticaria Active sulfonamides Active Immunizations Given and Recorded Vaccine Date Status Refusal Reason Diphth-Tetanus Toxoids Adsorbed(oldterm) 02/02/06 Given Medications No Known Medications Problem List Condition Effective Dates Status Health Status Informant Depression(Confirmed) Active Low back pain(Confirmed) Active Mood disorder(Confirmed) Active Panic anxiety syndrome(Confirmed) Active 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 Diagnosis Diagnosis Type Effective Dates Health Status Clinical In formant Service Mood disorder Discharge 04/22/20 Diagnosis Depression Discharge 04/22/20 Diagnosis Low back pain Discharge 04/22/20 Diagnosis Procedures Procedure Date Related Diagnosis Body Site Status Femur1 Completed 1repair with metal rachel ( now removed) 14 y/o Vital Signs Most recent to oldest [Reference Range]: 1 Height 165.00 cm (04/22/20 11:00 AM) Social History Social History Type Response Smoking Status Current every day smoker; Ty pe: Cigarettes; Tobacco use times per day: 1 PPD; Started at age: 13; entered on: 11/29/14 Sex
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
--- OUTSIDE RECORDS SUMMARY | 2022-04-16 01:38 | XMS_ITS | Continuity of Care Document ---
:1980 Author Organization [facility] Adult Address [address] [place] [address]- Care Team Providers Name Role Phone Anny Flores NP Primary Care Physician [place] [facility] [place] 10/15/20 - 11/14/20 [facility] Adult [address] [place] [phone]- Allergies, Adverse Reactions, Alerts Substance Reaction Severity [...]
[2022-04-16 01:53] VITALS: BP 111/76; PULSE 82; RESP 16; TEMP 36.8; O2SAT 98
[2022-04-16 02:08] VITALS: RESP 16
[2022-04-16 02:08] LABS: Basophils Percent Auto 0.3 % (0-2); Eosinophils Absolute Auto 0.3 X10*3/uL (0.0-0.4); Eosinophils Percent Auto 2.4 % (0-4); Hematocrit 42.1 % (42.0-52.0); Hemoglobin 13.8 g/dl (14.0-18.0); Imm Gran Abs Auto 0.02 X10*3/uL (0.00-0.03); Imm Gran Pct Auto 0.2 % (0.0-0.4); Lymphocytes Absolute Auto 2.8 X10*3/uL (1.2-4.9); Lymphocytes Percent Auto 24.1 % (20-40); MANUAL DIFF FLAG NO; Mean Corpuscular HGB Conc 32.8 g/dl (31.0-36.0); Mean Corpuscular Hemoglobin 29.7 pg (27.0-33.0); Mean Corpuscular Volume 90.5 fL (80.0-98.0); Mean Platelet Volume 9.5 fL (9.4-12.4); Monocytes Absolute Auto 0.7 X10*3/uL (0.1-1.2); Monocytes Percent Auto 5.9 % (2-11); Neutrophils Absolute Auto 7.8 x10*3/uL (2.0-8.3); Neutrophils Percent Auto 67.1 % (45-73); Platelet Count 247 X10*3/uL (160-400); Red Blood Count 4.65 X10*6/uL (4.60-5.80); Red Cell Distribution Width 12.2 % (11.0-16.0); White Blood Count 11.6 X10*3/uL (4.8-10.8)
[2022-04-16] MEDS: 0.9 % Sodium Chloride 1,000 ML 999 ML IV (02:08)
[2022-04-16] MEDS: Morphine Sulfate 4 MG/ML CARTRIDGE IVPUSH (02:08)
[2022-04-16] MEDS: ondansetron HCL 4 MG/2 ML VIAL IVPUSH (02:08)
[2022-04-16 02:28] LABS: Alanine Aminotransferase 34 U/L (0-40); Albumin Level 4.6 g/dL (3.5-5.0); Alkaline Phosphatase 57 U/L (39-117); Anion Gap 15 (12-20); Aspartate Amino Transferase 18 U/L (5-37); Bilirubin Total 0.6 mg/dL (0.0-1.0); Blood Urea Nitrogen 28 mg/dL (9-16); Calcium 9.5 mg/dL (8.4-10.2); Carbon Dioxide 28 mmol/L (22-29); Chloride 103 mmol/L (96-108); Creatinine Clr Calc Pharmacy 66.2; Estimated Glomerular Filt Rate > 60; Glucose Random 110 mg/dL (60-115); Lipase 93 U/L (8-78); Potassium 4.6 mmol/L (3.3-5.1); Sodium 141 mmol/L (135-145); Total Protein 7.7 g/dL (6.5-8.0)
[2022-04-16 03:52] VITALS: BP 109/77; PULSE 63; O2SAT 98
[2022-04-16] MEDS: oxyCODONE HCl Immed Release 5 MG TABLET 10 MG PO (04:13)
== END 2022-04-16 04:29 | disposition home or self-care (01) ==
PROVIDERS: Emergency Provider Internal Medicine; PCP Nurse Practitioner Family
DX: K86.1 Other chronic pancreatitis (principal); R42 Dizziness and giddiness; R51.9 Headache, unspecified; F17.200 Nicotine dependence, unspecified, uncomplicated; Z71.6 Tobacco abuse counseling; Z79.899 Other long term (current) drug therapy
CPT/HCPCS: 36415; 80053; 83690; 85025; 96374; 96375; 99284; J2270; J2405